=== PATIENT | male | born 1985 | race Caucasian/White ===

== ENCOUNTER 2023-08-23 11:41 | Emergency (ER) | payer OTHER, SELFPAY ==
[2023-08-23 11:48] VITALS: BP 130/77; PULSE 115; RESP 16; TEMP 36.4; O2SAT 97
--- NOTE | 2023-08-23 12:17 | ED.MALEGU ---
HPI - Male Genitourinary General Chief complaint: Urogenital-Male Stated complaint: std Time Seen by Provider: 08/23/23 12:07 Source: patient Mode of arrival: ambulatory Limitations: no limitations History of Present Illness HPI Narrative: 38 years old white male came to the ED with a an ulcer at the head of his penis noticed in the last few days. Patient been sleeping with a lot of women over the last weeks/ months. Most of them is unknown to him. He denies any fever, chills, nausea, vomiting, trouble urinating or burning sensation or swelling lymph nodes in the groin area or other skin rash. Related Data Allergies Allergy/AdvReac Type Severity Reaction Status Date / Time No Known Allergies Allergy Verified 08/23/23 11:41 Review of Systems Review of Systems: All systems reviewed & are unremarkable except as noted in HPI and below PMFSH Family History Family History Other Diabetes mellitus Hypertension Social History Social History Alcohol intake: current Exam Narrative: General appearance: Well-developed, well-nourished Skin: Normal color Head: Normocephalic, nontraumatic Eyes: Clear conjunctiva ENT: Oropharynx normal, ears normal, nose normal Neck: Supple, nontender Chest and respiratory: Airway patent, no respiratory distress, no accessory muscle use Heart: Regular rate/rhythm Abdomen: Soft, nontender, no organomegaly, quiet bowel sounds Genital area exam showed and ulceration/in duration at the head of the penis time 1 tender to touch, no lymphadenopathy of the groin area, no secretion or discharge Vascular: Normal peripheral pulses, normal capillary refill. 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, no gross motor deficit Course Vital Signs Vital signs: Vital Signs Temperature 36.4 C 08/23/23 11:48 Pulse Rate 115 H 08/23/23 11:48 Respiratory Rate 16 08/23/23 11:48 Blood Pressure 130/77 08/23/23 11:48 Pulse Oximetry 97 08/23/23 11:48 Oxygen Delivery Room Air 08/23/23 11:48 Temperature 36.4 C 08/23/23 11:48 Pulse Rate 115 H 08/23/23 11:48 Respiratory Rate 16 08/23/23 11:48 Blood Pressure 130/77 08/23/23 11:48 Pulse Oximetry 97 08/23/23 11:48 Oxygen Delivery Room Air 08/23/23 11:48 MDM - Male Genitourinary MDM Narrative Medical decision making narrative: physical exam is consistent with on ulcer at the tip of the penis. Differential diagnosis chin car versus chancroid. My plan to refer patient to the local Health Department, and treat him empirically for possible syphilis or chancroid. Also to treat him for gonorrhea and chlamydia. Differential Diagnosis Differential diagnosis: Likely other ( As above) Critical Care Time Critical Care Time Critical Care Time: No Discharge Plan Discharge Clinical Impression: Concern about STD in male without diagnosis Patient Disposition: Home, Self-Care Condition: Stable Instructions: Sexually Transmitted Diseases (ED), Safe Sex Practices (ED) Additional Instructions: Return if symptoms are worsening , call your family physician for appointment, take Tylenol as as needed for aches and pain, continue home medications. Follow-up with AIDS/STDs local health department for further evaluation to rule out the possibility of HIV, syphilis gonorrhea, chlamydia and other STDs Follow-up/Referrals: Laureano Decker MD [Physician] -
[2023-08-23] MEDS: PENICILLIN G BENZATHINE 2,400,000 UNITS/4 ML SYRINGE 2400000 UNITS IM (12:57)
[2023-08-23] MEDS: AZITHROMYCIN 250 MG TABLET 1000 MG PO (12:58)
[2023-08-23] MEDS: cefTRIAXone 250 MG VIAL IM (12:58)
[2023-08-23 13:07] VITALS: BP 128/75; PULSE 110; RESP 18; TEMP 36.8; O2SAT 98
== END 2023-08-23 13:09 | disposition home or self-care (01) ==
PROVIDERS: Emergency Provider Emergency Medicine
DX: N48.5 Ulcer of penis (principal); Z11.3 Encounter for screening for infections with a predominantly sexual mode of transmission
CPT/HCPCS: 96372; 99284; A9270; J0561; J0696